=== PATIENT | female | born 2000 | race Caucasian/White ===

== ENCOUNTER 2020-10-03 13:14 | Emergency (ER) | payer OTHER ==
[~2020-10-03] VITALS: Ht 167.6 cm; Wt 79.2 kg
[2020-10-03 13:15] VITALS: BP 116/60
[2020-10-03] MEDS ORDERED: DERMABOND TOPICAL SKIN ADHESIVE TOP ONE (13:45)
== END 2020-10-03 14:23 | disposition home or self-care (01) ==
LOC: M ED 13:14
DX: S61.411A Laceration without foreign body of right hand, initial encounter (principal); W26.0XXA Contact with knife, initial encounter; Y92.9 Unspecified place or not applicable; Y93.9 Activity, unspecified; Y99.9 Unspecified external cause status